=== PATIENT | male | born 1965 | race Caucasian/White ===

== ENCOUNTER 2017-11-30 19:07 | Emergency (ER) | payer OTHER ==
[~2017-11-30] VITALS: Ht 177.8 cm; Wt 99.8 kg
--- NOTE | 2017-11-30 20:47 | ED HAND/WRIST INJURY COMPLAINT ---
History of Present Illness General Chief Complaint: Laceration Procedure Stated Complaint: HAND LAC Source: patient Exam Limitations: no limitations Vital Signs & Intake/Output Vital Signs & Intake/Output Vital Signs Date Time Temp Pulse Resp B/P B/P Pulse O2 O2 Flow FiO2 Mean Ox Delivery Rate 11/30 1950 Room Air 11/30 1910 97.0 97 18 150/94 99 Room Air Allergies Coded Allergies: NO KNOWN ALLERGIES (03/20/12) Reconcile Medications Cephalexin (Keflex) 750 MG CAPSULE 1 CAP PO BID prevent infection Triage Note: PT TO ED C/O LACERATION TO LEFT HAND FROM METAL TOOL WHILE TRYING TO TAKE A NAIL OUT OF A TIRE APPROX 20 MINS AGO. IS CURRENT WITH TETANUS. PT HAS SMALL PUNCTURE WOUND. BLEEDING CONTROLLED AT THIS TIME Triage Nurses Notes Reviewed? yes HPI: Patient presents for evaluation of a left hand laceration that occurred prior to arrival. Patient states that he was trying to remove a nail from a tire with the auger typically used to place the plug into the tire. He states it slipped gouging his left hand. Past History Travel History Traveled to [place] past 21 day No Medical History Any Pertinent Medical History? see below for history Cardiovascular: hypertension Musculoskeletal: CHRONIC NECK PAIN Endocrine: diabetes Tetanus Status: up to date Surgical History Surgical History: non-contributory Psychosocial History What is your primary language Greenlandic Tobacco Use: Quit >30 days ago ETOH Use: occasional use Illicit Drug Use: denies illicit drug use Family History Hx Contributory? No Review of Systems Review of Systems Constitutional: Reports: no symptoms. EENTM: Reports: no symptoms. Respiratory: Reports: no symptoms. Cardiovascular: Reports: no symptoms. GI: Reports: no symptoms. Genitourinary: Reports: no symptoms. Musculoskeletal: Reports: no symptoms. Skin: Reports: see HPI. Neurological/Psychological: Reports: no symptoms. Hematologic/Endocrine: Reports: no symptoms. Immunologic/Allergic: Reports: no symptoms. All Other Systems: Reviewed and Negative Physical Exam Physical Exam General Appearance: see below Hand Left: puncture wound dorsal left hand Hand Right: normal inspection Comments: Gen.: Well-nourished, well-developed, no acute respiratory distress. Head: Normocephalic, atraumatic. Eyes: Normal inspection bilaterally Ears: Normal inspection bilaterally Nose: Normal inspection Throat/mouth : Moist mucosa Neck: Supple, full range of motion, no goiter Heart: Regular rate and rhythm Lungs: Quiet respirations Back: Normal range of motion Extremities: Left hand: 3 cm laceration over the dorsal aspect of the first web space with no active bleeding. Patient has normal range of motion of the left thumb (extension, flexion, abduction, abduction). Sensation is intact to light touch to the thumb and index finger. Neurologic: Cranial nerves grossly intact, speech is clear Skin: warm and dry Psychiatric: Calm, cooperative, no apparent delusions or hallucinations Progress Differential Diagnosis: fx,tendon injury, vascular injury, foreign body Plan of Care: see d/c instructions Departure Departure Disposition: HOME OR SELF CARE Condition: Stable Clinical Impression Primary Impression: Puncture wound of left hand Qualifiers: Encounter type: initial encounter Foreign body presence: without foreign body Qualified Code: S61.432A - Puncture wound without foreign body of left hand, initial encounter Referrals: Alex AGUILAR,Wilman Betancourt (PCP/Family) Additional Instructions: Keflex as prescribed. Daily dressing changes to your wound. Follow-up with your primary care physician or return to the emergency department in 48 hours for a wound check. Otherwise return immediately if any concerns or sudden worsening. If you're unable to follow up as outlined in the discharge instructions please return to the emergency department. Thank you for choosing the [facility] Emergency Department for your care. It was a pleasure to serve you today. Ricardo Pierson M.D. [facility] Departure Forms: Customer Survey General Discharge Information Prescriptions: Current Visit Scripts Cephalexin (Keflex) 1 CAP PO BID #[id number] CAP
[2017-11-30] MEDS ORDERED: KEFLEX750 M1 PO (20:56)
[2017-11-30 21:14] VITALS: BP 144/90
== END 2017-11-30 21:14 ==
LOC: ERH 19:07
DX: S61.432A Puncture wound without foreign body of left hand, initial encounter (principal); W45.8XXA Other foreign body or object entering through skin, initial encounter; Y92.9 Unspecified place or not applicable; Y93.89 Activity, other specified; Z87.891 Personal history of nicotine dependence; I10 Essential (primary) hypertension; F10.10 Alcohol abuse, uncomplicated